=== PATIENT | male | born 1980 | race Caucasian/White ===

== ENCOUNTER 2020-06-18 04:33 | Observation (INO) | payer BC, SELFPAY ==
[2020-06-18] VITALS (16 sets, daily range): BP systolic 113–155; BP diastolic 58–111; PULSE 78–122; RESP 12–18; TEMP 36.8–37.2; O2SAT 98–100; BMI 24.0
--- NOTE | ~2020-06-18 | CT_ITS ---
EXAMINATION: CT abdomen pelvis w con DATE: 06/18/2020 06:24 INDICATION: Abdomen pain with nausea and vomiting TECHNIQUE: Computed tomography (CT) of the abdomen and pelvis was performed with 100 cc Omnipaque 350 intravenous contrast. The dose-length product was 339.69 mGy-cm. Automated exposure control and iter ative reconstruction technique were employed. COMPARISON: CT dated 08/23/2016 FINDINGS: Lung bases unremarkable. No significant pleural or pericardial effusion. Moderate size hiat al hernia. There are surgical changes of the stomach at the level of the hiatus. Status post cholecystectomy. The liver, spleen, pancreas, adrenal glands and kidneys are unremarkable . Normal appendix. Nonobstructive bowel gas pattern. No significant vascular abnormality. No lymphade nopathy. No free air or free fluid. No acute osseous abnormality. IMPRESSION: 1. Moderate size hiatal hernia with surgical changes at the gastroesophageal junction. 2: No acute abdominal abnormality identified. Reviewed, dictated and finalized at location A. [employer] IMPRESSION: 1. Moderate size hiatal hernia with surgical changes at the gastroesophageal ju nction. 2: No acute abdominal abnormality identified.
--- NOTE | 2020-06-18 04:59 | ED.GENADULT ---
HPI - General Adult General Chief complaint: Nausea/Vomiting/Diarrhea Stated complaint: nausea, vomiting Time Seen by Provider: 06/18/20 04:48 History of Present Illness HPI narrative: Patient is a 39-year-old gentleman who presents to emergency department with chief complaint of nausea and vomiting. Patient reports that on New Year's he took some shrimp and afterwards noticed that he did not agree with him well. Patient states that he started vomiting and has had couple days of nausea and vomiting at home. Patient states he is attempted to take some Zofran tablets that he had leftover from a previous surgery when he had his gallbladder removed. Patient states that he has been unable to tolerate p.o. intake and feels very thirsty. Patient denies abdominal pain Related Data Allergies Allergy/AdvReac Type Severity Reaction Status Date / Time No Known Allergies Allergy Verified 06/18/20 04:38 Review of Systems Review of Systems: Narrative: A 10 system review of systems was completed on the patient and is negative except for what is stated in the HPI. Nursing and ancillary documentation was reviewed. PMFSH Comments Patient has past medical history significant for gallbladder disease and surgical history significant for cholecystectomy. Social history patient denies illicit drug use Exam Narrative: Exam Narrative: GENERAL: Well-appearing, well-nourished, and in no acute distress. HEAD: Normocephalic, atraumatic. EYES: PERRLA and EOMI. ENT: Nares clear, no rhinorrhea or epistaxis. Mucous membranes moist. NECK: Supple. CHEST: Clear to auscultation. No respiratory distress. HEART: Regular rate and rhythm. No murmur heard. Normal peripheral pulses. ABDOMEN: Soft, nontender, nondistended, normal active bowel sounds. EXTREMITIES: Normal range of motion. No edema. SKIN: Warm, dry, no rash. NEURO: No focal deficits. Alert and oriented x3. PSYCH: Normal mood and affect. Course Course Emergency Course: Patient's white blood cell count was elevated at 18.8 he received a liter of normal saline and 2 doses of IV Zofran. Given his white blood cell count was elevated a CT scan was obtained of the abdomen pelvis. At this time the patient is feeling much better patient is being given an additional liter of fluid as he has not urinated yet. Patient reports that his nausea is still there but much better. Vital Signs Vital signs: Vital Signs Temperature 36.9 C 06/18/20 04:36 Pulse Rate 107 H 06/18/20 04:36 Respiratory Rate 12 06/18/20 04:36 Blood Pressure 142/111 H 06/18/20 04:36 Pulse Oximetry 100 06/18/20 04:36 Temperature 36.9 C 06/18/20 04:36 Pulse Rate 97 06/18/20 06:34 Respiratory Rate 18 06/18/20 06:34 Blood Pressure 121/58 L 06/18/20 06:34 Pulse Oximetry 98 06/18/20 06:34 Medical Decision Making Vital Signs Vital Signs: Vital Signs Temperature 36.9 C 06/18/20 04:36 Pulse Rate 107 H 06/18/20 04:36 Respiratory Rate 12 06/18/20 04:36 Blood Pressure 142/111 H 06/18/20 04:36 Pulse Oximetry 100 06/18/20 04:36 Temperature 36.9 C 06/18/20 04:36 Pulse Rate 97 06/18/20 06:34 Respiratory Rate 18 06/18/20 06:34 Blood Pressure 121/58 L 06/18/20 06:34 Pulse Oximetry 98 06/18/20 06:34 Lab Data Result diagrams: 06/18/20 05:02 06/18/20 05:02 Labs: Lab Results 06/18/20 06/18/20 Range/Units 05:02 05:02 WBC 18.8 H (4.5-10.0) K/mm3 RBC 5.53 (4.6-6.20) M/mm3 Hgb 17.5 (14.0-18.0) g/dL Hct 49.8 (42.0-52.0) % MCV 90.1 (80-100) fl MCH 31.6 (26-34) pg MCHC 35.1 (32-36) g/dl RDW 13.2 (11.5-14.5) % Plt Count 433 H (150-375) k/mm3 MPV 10.2 (7.4-10.4) fl Immature Gran % (Auto) 0.4 (0-0.5) % Neut % (Auto) 88.8 H (45.5-73.1) % Lymph % (Auto) 4.4 L (18.3-44.2) % [place] % (Auto) 6.2 (2.6-8.5) % Eos % (Auto) 0.1 (0-4.4) % Baso % (Auto) 0.1 L (0.2-1.2) % Lymph # (Auto) 0.83
[2020-06-18] MEDS: SODIUM CHLORIDE 0.9% IV 1,000 ML 999 ML IV CONT ×2 (05:02→06:57)
[2020-06-18] MEDS: ONDANSETRON INJ 4 MG/2 ML VIAL IV PUSH ×5 (05:02→19:57)
--- NOTE | 2020-06-18 05:15 | PC.NURSE ---
Patient attempted to provide a urine specimen,unsuccessful.
[2020-06-18 05:17] LABS: Basophils Percent Auto 0.1 % (0.2-1.2); Eosinophils Percent Auto 0.1 % (0-4.4); Hematocrit 49.8 % (42.0-52.0); Hemoglobin 17.5 g/dL (14.0-18.0); Immature Granulocyte Absolute 0.07 K/mm3 (0.00-0.031); Immature Granulocyte Percent A 0.4 % (0-0.5); Lymphocytes Absolute Auto 0.83 K/mm3 (0.9-3.2); Lymphocytes Percent Auto 4.4 % (18.3-44.2); Mean Corpuscular HGB Conc 35.1 g/dl (32-36); Mean Corpuscular Hemoglobin 31.6 pg (26-34); Mean Corpuscular Volume 90.1 fl (80-100); Mean Platelet Volume 10.2 fl (7.4-10.4); Monocytes Absolute Auto 1.2 K/mm3 (0.1-0.6); Monocytes Percent Auto 6.2 % (2.6-8.5); Neutrophils Absolute Auto 16.7 K/mm3 (1.3-6.7); Neutrophils Percent Auto 88.8 % (45.5-73.1); Platelet Count Result 433 k/mm3 (150-375); Red Blood Count 5.53 M/mm3 (4.6-6.20); Red Cell Distribution Width 13.2 % (11.5-14.5); White Blood Count 18.8 K/mm3 (4.5-10.0)
[2020-06-18 05:29] LABS: Alanine Aminotransferase 56 U/L (4-50); Alkaline Phosphatase 79 U/L (38-126); Anion Gap 12 mmol/L (8-16); Aspartate Amino Transferase 56 U/L (17-59); Bilirubin,Total 1.1 mg/dL (0.2-1.3); Blood Urea Nitrogen 27 mg/dL (9-20); Calcium 11.2 mg/dL (8.4-10.2); Carbon Dioxide 30 mmol/L (22-30); Chloride 97 mmol/L (98-107); Estimated CRCL calculation 75 ml/min; Estimated Glomerular Filt Rate 57; Glucose 165 mg/dL (75-110); Lipase 63 U/L (23-300); Potassium 4.1 mmol/L (3.4-5.0); Sodium 139 mmol/L (137-145)
--- NOTE | 2020-06-18 06:04 | PC.NURSE ---
Patient stated my head is on fire. I have a headache. I'm no longer nauseous but my head is on fire. ERP notified.
--- NOTE | 2020-06-18 06:11 | PC.NURSE ---
Patient taken to CT.
--- NOTE | 2020-06-18 08:14 | PC.NURSE ---
Pt was give water per DR Napier. Pt states he is still feeling nausea and is dry heaving in room. Informed of this.
[2020-06-18] MEDS: PROMETHAZINE HCL 25 MG/ML AMPUL 12.5 MG IV PUSH (08:18)
[2020-06-18 08:30] LABS: Add Urine Microscopic? YES; Appearance Urine Clear (Clear); Bilirubin Urine Negative (Negative); Blood Urine Negative (Negative); Color Urine Yellow (Yellow); Glucose Urine UA Negative (Negative); Ketones Urine 1+ mg/dL (Negative); Leukocyte Esterase Ur Negative LEU/UL (Negative); Mucus Urine Few /lpf; Nitrate Urine Negative (Negative); Protein Urine 2+ mg/dL (Negative); Urobilinogen Urine Negative mg/dL (<2.0); WBC Urine 0-3 /hpf
[2020-06-18 08:40] LABS: Specific Grav Ur > 1.060 (1.001-1.035)
[2020-06-18] MEDS: SODIUM CHLORIDE 0.9% IV 1,000 ML 125 ML IV CONT ×2 (11:15→19:25)
[2020-06-18 11:29] LABS: Magnesium 2.1 mg/dL (1.6-2.3)
--- NOTE | 2020-06-18 15:21 | PM.IMHP ---
H&P: HPI History of Present Illness Date/Time: 06/18/20 15:21 Chief Complaint: Nausea and vomiting Narrative: Darron Loera is a 39 year old male with no significant past medical history patient states that on patient had some shrimp and possibly some alcohol 6 hours later patient developed nausea and vomiting mostly consisting p.o.intake and no diarrhea, he took Zofran OTC there was no improvement, was not able to hold anything PO and presented emergency department further evaluation, in the emergency depart patient was started on antiemetics and IV hydration as patient is dehydrated, to further evaluate patient had a CT scan of the abdomen which is essentially normal without any pathology for patient's symptoms, most likely patient has a food poisoning however normally symptoms do not last that long, we are going to continue to monitor the patient with IV fluid and antiemetic and start the patient on clear liquid advanced as tolerated Review of Systems Review of Systems: All systems reviewed & are unremarkable except as noted in HPI and below PMFSH Family History Family History (Updated 06/18/20 @ 11:32 by Alicia Barragan RN) Sibling Diabetes mellitus Social History Social History Smoking status: Never smoker Alcohol intake: current Drinks per week: 3 Substance use: never Gender identity (if verbalized by the patient): Male Spiritual care concerns: No Meds Home Medications and Allergies Home Medications Medication Instructions Recorded Confirmed Type ondansetron 4 mg PO Q8H PRN #10 tablet 06/18/20 Rx Allergies Allergy/AdvReac Type Severity Reaction Status Date / Time No Known Allergies Allergy Verified 06/18/20 11:16 Vital Signs Vital Signs - 24 hr 06/18/20 04:36 06/18/20 05:06 06/18/20 05:07 Temperature 98.4 F Pulse Rate 107 H 90 Respiratory Rate 12 Blood Pressure 142/111 H 134/95 H 147/96 H Pulse Oximetry 100 06/18/20 05:08 06/18/20 05:09 06/18/20 05:10 Temperature Pulse Rate 108 H 122 H Respiratory Rate Blood Pressure 147/96 H 113/97 H 141/92 H Pulse Oximetry 06/18/20 05:11 06/18/20 05:21 06/18/20 05:30 Temperature Pulse Rate 78 Respiratory Rate 18 Blood Pressure 141/92 H 141/92 H 129/84 Pulse Oximetry 98 06/18/20 06:34 06/18/20 09:00 06/18/20 09:10 Temperature 98.3 F Pulse Rate 97 97 78 Respiratory Rate 18 18 18 Blood Pressure 121/58 L 127/95 H 144/92 H Pulse Oximetry 98 100 100 06/18/20 11:22 06/18/20 11:23 Temperature Pulse Rate 87 104 H Respiratory Rate Blood Pressure 155/69 H 128/95 H Pulse Oximetry Exam Narrative: Exam Narrative: Patient is comfortable, NAD HEENT: eyes are clear and none icteric LUNGS:CTA HEART: RR S1S2 ABD: BS+, Soft and nontender Lower extremities: no edema SKIN: nonjaundiced Neuro: grossly intact. H&P: Results Labs Labs: Short CBC 06/18/20 Range/Units 05:02 WBC 18.8 H (4.5-10.0) K/mm3 Hgb 17.5 (14.0-18.0) g/dL Hct 49.8 (42.0-52.0) % Plt Count 433 H (150-375) k/mm3 BMP 06/18/20 05:02 Sodium 139 Potassium 4.1 Chloride 97 L Carbon Dioxide 30 BUN 27 H Creatinine 1.40 H Glucose 165 H Calcium 11.2 H Liver Function 06/18/20 Range/Units 05:02 Total Bilirubin 1.1 (0.2-1.3) mg/dL AST 56 (17-59) U/L ALT 56 H (4-50) U/L Alkaline Phosphatase 79 (38-126) U/L Albumin 5.0 (3.5-5.1) g/dL Urine 06/18/20 Range/Units 08:20 Urine Color Yellow (Yellow) Urine Appearance Clear (Clear) Urine pH 6.0 (5.0-9.0) Ur Specific [place] > 1.060 H (1.001-1.035) Urine Protein 2+ H (Negative) mg/dL Urine Glucose (UA) Negative (Negative) mg/dL Assessment and Plan Assessment and plan (1) Nausea & vomiting: Qualifiers: Vomiting Intractability: non-intractable Vomiting type: unspecified Qualified Code(s): R11.2 - Nausea with vomiting, unspecified Code(
[2020-06-19] MEDS: ONDANSETRON INJ 4 MG/2 ML VIAL IV PUSH ×2 (00:27→06:26)
[2020-06-19] MEDS: SODIUM CHLORIDE 0.9% IV 1,000 ML 125 ML IV CONT (03:40)
[2020-06-19 05:11] VITALS: BP 142/70; PULSE 70; RESP 12; TEMP 37.2; O2SAT 100
[2020-06-19 05:57] LABS: Hematocrit 42.6 % (42.0-52.0); Hemoglobin 14.3 g/dL (14.0-18.0); Mean Corpuscular HGB Conc 33.6 g/dl (32-36); Mean Corpuscular Volume 92.2 fl (80-100); Mean Platelet Volume 9.7 fl (7.4-10.4); Platelet Count Result 307 k/mm3 (150-375); Red Blood Count 4.62 M/mm3 (4.6-6.20); Red Cell Distribution Width 13.2 % (11.5-14.5); White Blood Count 15.1 K/mm3 (4.5-10.0)
[2020-06-19 06:18] LABS: Alanine Aminotransferase 38 U/L (4-50); Albumin Level 3.5 g/dL (3.5-5.1); Alkaline Phosphatase 48 U/L (38-126); Anion Gap 6 mmol/L (8-16); Aspartate Amino Transferase 33 U/L (17-59); Bilirubin,Total 0.8 mg/dL (0.2-1.3); Blood Urea Nitrogen 17 mg/dL (9-20); Calcium 8.4 mg/dL (8.4-10.2); Carbon Dioxide 29 mmol/L (22-30); Chloride 105 mmol/L (98-107); Estimated CRCL calculation 94 ml/min; Estimated Glomerular Filt Rate > 60; Glucose 111 mg/dL (75-110); Potassium 4.2 mmol/L (3.4-5.0); Sodium 140 mmol/L (137-145)
[2020-06-19 14:00] VITALS: BP 138/66; PULSE 87; RESP 14; TEMP 37.1; O2SAT 100
[2020-06-19 14:20] VITALS: O2SAT 99
--- NOTE | 2020-06-19 15:40 | PM.DS ---
DS: Admitting Diagnosis Admitting Diagnosis Admitting Diagnosis: Nausea and vomiting DS: Discharge Diagnosis Discharge Diagnosis (1) Nausea & vomiting: Qualifiers: Vomiting Intractability: non-intractable Vomiting type: unspecified Qualified Code(s): R11.2 - Nausea with vomiting, unspecified Code(s): R11.2 - Nausea with vomiting, unspecified Status: Acute Assessment and Plan: Darron Loera is a 39 year old male with no significant past medical history patient states that on new ivy patient had some shrimp and possibly some alcohol 6 hours later patient developed nausea and vomiting mostly consisting p.o.intake and no diarrhea, he took Zofran OTC there was no improvement, was not able to hold anything PO and presented emergency department further evaluation, in the emergency depart patient was started on antiemetics and IV hydration as patient is dehydrated, to further evaluate patient had a CT scan of the abdomen which is essentially normal without any pathology for patient's symptoms, most likely patient has a food poisoning however normally symptoms do not last that long, we are going to continue to monitor the patient with IV fluid and antiemetic and start the patient on clear liquid advanced as tolerated DS: Summary Hospital Course Reason for hospitalization: Chief Complaint: Nausea and vomiting Narrative: Darron Loera is a 39 year old male with no significant past medical history patient states that on ivy patient had some shrimp and possibly some alcohol 6 hours later patient developed nausea and vomiting mostly consisting p.o.intake and no diarrhea, he took Zofran OTC there was no improvement, was not able to hold anything PO and presented emergency department further evaluation, in the emergency depart patient was started on antiemetics and IV hydration as patient is dehydrated, to further evaluate patient had a CT scan of the abdomen which is essentially normal without any pathology for patient's symptoms, most likely patient has a food poisoning however normally symptoms do not last that long, we are going to continue to monitor the patient with IV fluid and antiemetic and start the patient on clear liquid advanced as tolerated Hospital Course: Narrative: Darron Loera is a 39 year old male with no significant past medical history patient states that on new year ivy patient had some shrimp and possibly some alcohol 6 hours later patient developed nausea and vomiting mostly consisting p.o.intake and no diarrhea, he took Zofran OTC there was no improvement, was not able to hold anything PO and presented emergency department further evaluation, in the emergency depart patient was started on antiemetics and IV hydration as patient is dehydrated, to further evaluate patient had a CT scan of the abdomen which is essentially normal without any pathology for patient's symptoms, most likely patient has a food poisoning however normally symptoms do not last that long, we are going to continue to monitor the patient with IV fluid and antiemetic and start the patient on clear liquid advanced as tolerated. Patient has moderate size hiatal hernia possible causing nausea and vomiting. patient is clinically improving and was able to hold clear liquids, will discharge the patient with instruction to slowly advance his diet and avoid heavy big meals, patient is instructed if any symptoms redevelop to go to nearest ER. patient to follow up with his primary care provider as soon as possible, Status at Discharge Functional status at discharge: independent ambulation Overall status at discharge: patient is back to baseline Time Spent with Patient Time attestation: Total time spent providing and/or coordinating discharge services: Time spent: Less than 30 minutes Exam Narrative: Exam Narrative: Patient is comfortable, NAD HEENT: eyes are clear and none icteric LUNGS:CTA HEART: RR S1S2 ABD:
== END 2020-06-19 16:35 | disposition home or self-care (01) ==
LOC: ANHED 08:04 → ANH3MED 08:50
PROVIDERS: Emergency Medicine; Admitting Provider Family Medicine; Emergency Provider Emergency Medicine; Referring Provider Family Medicine; Visit Provider Family Medicine
DX: K44.9 Diaphragmatic hernia without obstruction or gangrene (principal); R11.2 Nausea with vomiting, unspecified; Z90.49 Acquired absence of other specified parts of digestive tract
CPT/HCPCS: 36415; 74177; 80053; 81001; 83690; 83735; 85025; 85027; 96361; 96374; 96375; 96376; 99285; G0378; J0131; J2405; J2550; J7030; Q9967

== ENCOUNTER 2020-07-10 09:23 | Outpatient (CLI) | payer BC, SELFPAY ==
[2020-07-10 09:42] LABS: Hemoglobin 15.1 g/dL (14.0-18.0); Mean Corpuscular HGB Conc 33.6 g/dl (32-36); Mean Corpuscular Hemoglobin 31.8 pg (26-34); Mean Corpuscular Volume 94.7 fl (80-100); Mean Platelet Volume 9.9 fl (7.4-10.4); Platelet Count Result 324 k/mm3 (150-375); Red Blood Count 4.75 M/mm3 (4.6-6.20); Red Cell Distribution Width 13.8 % (11.5-14.5); White Blood Count 7.2 K/mm3 (4.5-10.0)
[2020-07-10 09:46] LABS: Alanine Aminotransferase 21 U/L (4-50); Albumin Level 4.1 g/dL (3.5-5.1); Alkaline Phosphatase 56 U/L (38-126); Anion Gap 8 mmol/L (8-16); Aspartate Amino Transferase 26 U/L (17-59); Bilirubin,Total 0.6 mg/dL (0.2-1.3); Blood Urea Nitrogen 12 mg/dL (9-20); Calcium 8.9 mg/dL (8.4-10.2); Carbon Dioxide 29 mmol/L (22-30); Chloride 100 mmol/L (98-107); Estimated Glomerular Filt Rate > 60; Glucose 109 mg/dL (75-110); Potassium 4.1 mmol/L (3.4-5.0); Sodium 137 mmol/L (137-145)
== END 2020-07-10 09:24 | disposition home or self-care (01) ==
PROVIDERS: PCP Family Medicine; Visit Provider Family Medicine
DX: E86.0 Dehydration (principal); R79.89 Other specified abnormal findings of blood chemistry
CPT/HCPCS: 36415; 80053; 85027

== ENCOUNTER 2020-08-01 13:12 | Emergency (ER) | payer BC, SELFPAY ==
--- NOTE | ~2020-08-01 | CT_ITS ---
EXAMINATION: CT abdomen pelvis w con EXAM DATE: 08/01/2020 16:01 INDICATION: Lower abdominal pain with vomiting. Heartburn. TECHNIQUE: Spiral CT of the abdomen and pelvis was performed following intravenous injection of 100 m L Omnipaque 350. Axial, coronal and sagittal images were reviewed. The dose-length product (DLP) fo r this examination was 399.87 mGy-cm. The exposure was tailored according to patient size (auto mA e xposure control), and iterative reconstruction (ASIR) was used as additional dose reduction technique . Comparison is made to prior examination from 06/18/2020, 08/23/2016. FINDINGS: Surgical changes at the gastroesophageal junction, with small to moderate-sized gastroesoph ageal hiatal hernia. Patient could have had Niesen fundoplication but correlate with history. Similar appearance to this on the prior CT scan from June, but the surgical changes appear to be new comp ared to 2017. Stomach is undistended at this time. No free intraperitoneal gas. The liver, spleen, adrenal glands and pancreas are unremarkable. There are cholecystectomy clips. P ortal and splenic veins are patent. Kidneys enhance symmetrically. There is no hydronephrosis. Th e prostate is unremarkable. The bladder is unremarkable. There is no retroperitoneal or pelvic lymp hadenopathy. There are no findings to suggest appendicitis. There is expected amount of colonic stool. The heart is normal in size. There are no pericardial or pleural effusions. The lung bases are unremarkable. There are no osteoblastic or osteolytic lesions identified. IMPRESSION: Small to moderate-sized hiatal hernia unchanged compared to June but interval surgical changes compared to 2016. Could be recurrence of hernia following [place] fundoplication. Reviewed, dictated and finalized at location A. TENDER IMPRESSION: Small to moderate-sized hiatal hernia unchanged compared to June but interval surgical changes compared to 2017. Could be recurrence of hernia following [place] fundoplication.
[2020-08-01 13:18] VITALS: BP 146/94; PULSE 120; RESP 17; TEMP 36.2; O2SAT 100
[2020-08-01 13:36] LABS: Basophils Percent Auto 0.2 % (0.2-1.2); Hematocrit 49.8 % (42.0-52.0); Hemoglobin 16.7 g/dL (14.0-18.0); Immature Granulocyte Absolute 0.06 K/mm3 (0.00-0.031); Immature Granulocyte Percent A 0.4 % (0-0.5); Lymphocytes Absolute Auto 0.75 K/mm3 (0.9-3.2); Lymphocytes Percent Auto 5.1 % (18.3-44.2); Mean Corpuscular HGB Conc 33.5 g/dl (32-36); Mean Corpuscular Hemoglobin 31.5 pg (26-34); Mean Platelet Volume 10.1 fl (7.4-10.4); Monocytes Absolute Auto 0.5 K/mm3 (0.1-0.6); Monocytes Percent Auto 3.1 % (2.6-8.5); Neutrophils Absolute Auto 13.5 K/mm3 (1.3-6.7); Neutrophils Percent Auto 91.2 % (45.5-73.1); Platelet Count Result 375 k/mm3 (150-375); White Blood Count 14.8 K/mm3 (4.5-10.0)
[2020-08-01] MEDS: PROMETHAZINE HCL 25 MG/ML AMPUL 12.5 MG IV PUSH (13:40)
[2020-08-01] MEDS: SODIUM CHLORIDE 0.9% IV 1,000 ML 999 ML IV CONT (13:40)
--- NOTE | 2020-08-01 13:50 | PC.NURSE ---
Asked pt for urine sample, pt stated he was unable to provide sample at this time
[2020-08-01 14:05] LABS: Alanine Aminotransferase 35 U/L (4-50); Albumin Level 4.5 g/dL (3.5-5.1); Alkaline Phosphatase 68 U/L (38-126); Anion Gap 10 mmol/L (8-16); Aspartate Amino Transferase 32 U/L (17-59); Bilirubin,Total 0.5 mg/dL (0.2-1.3); Blood Urea Nitrogen 14 mg/dL (9-20); Calcium 9.4 mg/dL (8.4-10.2); Carbon Dioxide 29 mmol/L (22-30); Chloride 103 mmol/L (98-107); Estimated CRCL calculation 87 ml/min; Estimated Glomerular Filt Rate > 60; Glucose 151 mg/dL (75-110); Lipase 56 U/L (23-300); Potassium 4.1 mmol/L (3.4-5.0); Sodium 142 mmol/L (137-145)
--- NOTE | 2020-08-01 14:37 | PC.NURSE ---
Requested urine. pt states he can't go and is still naus.
[2020-08-01] MEDS: FAMOTIDINE 20 MG/2 ML VIAL IV PUSH (15:37)
[2020-08-01] MEDS: ONDANSETRON INJ 4 MG/2 ML VIAL IV PUSH (15:37)
[2020-08-01] MEDS: SODIUM CHLORIDE 0.9% IV 1,000 ML 999 ML (16:05)
--- NOTE | 2020-08-01 16:47 | ED.NAVMDI ---
HPI - Nausea/Vomiting/Diarrhea General Chief complaint: Nausea/Vomiting/Diarrhea Stated complaint: vomiting Time Seen by Provider: 08/01/20 13:17 History of Present Illness HPI Narrative: Patient is a 31-year-old male who presents ER with nausea and vomiting. Reports began yesterday 2 hours after eating lunch. Concerned he may have food poisoning from eating 2 cheeseburgers and a spicy chicken sandwich. He had some loose stool as well. Today after waking up he had persistent nausea vomiting but no loose stools. Abdominal pain is crampy and lower in nature. No radiation. Cannot describe any aggravating or alleviating factors. Reports Zofran does not typically help with his nausea and vomiting. Has had similar episodes like this in the past. Related Data Allergies Allergy/AdvReac Type Severity Reaction Status Date / Time No Known Allergies Allergy Verified 08/01/20 13:17 Review of Systems Review of Systems: All systems reviewed & are unremarkable except as noted in HPI and below Constitutional: Constitutional: Denies chills, Denies fever(s) and Denies weakness ENT: Denies nasal congestion and Denies sore throat Cardiovascular: Cardiovascular: Denies chest pain, Denies rapid heart rate and Denies radiating jaw, neck or arm pain Respiratory: Respiratory: Denies cough, Denies dyspnea and Denies wheezing Gastrointestinal: Gastrointestinal: Reports abdominal pain, Reports diarrhea, Reports nausea and Reports vomiting PMFSH Past Medical History Medical History ADHD Anxiety Back pain Surgical History Surgical History H/O hernia repair Family History Family History Sibling Diabetes mellitus Grandparent Heart disease Alzheimer disease Social History Social History Smoking status: Never smoker Alcohol intake: current Drinks per week: 3 Substance use: never Gender identity (if verbalized by the patient): Male Spiritual care concerns: No Exam Narrative: Exam Narrative: GENERAL: Uncomfortable-appearing, well-nourished, and in no acute distress. HEAD: Normocephalic, atraumatic. ENT: Mucous membranes moist. CHEST: Clear to auscultation. No respiratory distress. HEART: Tachycardic regular. Normal peripheral pulses. ABDOMEN: Soft, mild bilateral lower quadrant tenderness without guarding, nondistended. EXTREMITIES: Normal range of motion. No edema. SKIN: Warm, dry, no rash. NEURO: Alert and oriented x3. PSYCH: Normal mood and affect. Course Course Emergency Course: Patient has received 2 L of fluid and 2 rounds of antiemetics. Unremarkable CT scan. Leukocytosis likely reactive to vomiting. Discharge home with antiemetics and Pepcid which she also received IV. Vital Signs Vital signs: Vital Signs Temperature 97.2 F L 08/01/20 13:18 Pulse Rate 120 H 08/01/20 13:18 Respiratory Rate 17 08/01/20 13:18 Blood Pressure 146/94 H 08/01/20 13:18 Pulse Oximetry 100 08/01/20 13:18 Temperature 97.2 F L 08/01/20 13:18 Pulse Rate 120 H 08/01/20 13:18 Respiratory Rate 17 08/01/20 13:18 Blood Pressure 146/94 H 08/01/20 13:18 Pulse Oximetry 100 08/01/20 13:18 MDM - Nausea/Vomiting/Diarrhea Lab Data Result diagrams: 08/01/20 13:28 08/01/20 13:28 Labs: Lab Results 08/01/20 08/01/20 Range/Units 13:28 13:28 WBC 14.8 H (4.5-10.0) K/mm3 RBC 5.30 (4.6-6.20) M/mm3 Hgb 16.7 (14.0-18.0) g/dL Hct 49.8 (42.0-52.0) % MCV 94.0 (80-100) fl MCH 31.5 (26-34) pg MCHC 33.5 (32-36) g/dl RDW 14.0 (11.5-14.5) % Plt Count 375 (150-375) k/mm3 MPV 10.1 (7.4-10.4) fl Immature Gran % (Auto) 0.4 (0-0.5) % Neut % (Auto) 91.2 H (45.5-73.1) % Lymph % (Auto) 5.1 L (18.3-44.2) % [place]
[2020-08-01 17:28] VITALS: BP 167/97; PULSE 98; RESP 16; O2SAT 97
== END 2020-08-01 17:28 | disposition home or self-care (01) ==
PROVIDERS: Emergency Provider Emergency Medicine; PCP Family Medicine
DX: R11.2 Nausea with vomiting, unspecified (principal); K44.9 Diaphragmatic hernia without obstruction or gangrene
CPT/HCPCS: 36415; 74177; 80053; 83690; 85025; 96361; 96374; 96375; 99284; J2405; J2550; J7030; Q9967